=== PATIENT | female | born 1970 | race Caucasian/White ===

== ENCOUNTER 2018-11-05 13:21 | Outpatient (CLI) | payer BC ==
--- NOTE | 2018-11-13 09:23 | MMO ---
BILATERAL DIGITAL SCREENING MAMMOGRAMS: Date: 11/05/18 HISTORY: 48-year-old female presents for digital screening mammogram. COMPARISON: 06/16/15. FINDINGS: This patient's mammogram was interpreted with the assistance of computer-aided detection. Scattered areas of fibroglandular density are noted bilaterally. There does appear to be some overall increased density in both breasts compared to the prior study. There are stable bilateral parenchyma l density asymmetries. No direct or indirect evidence of malignancy. IMPRESSION: BIRADS 2: Benign Finding(s) Continue routine screening. POS: ERIN
== END 2018-11-05 13:22 | disposition home or self-care (01) ==
LOC: SCSMAMMO 13:21
PROVIDERS: ATTEND Family Medicine
DX: Z12.31 Encounter for screening mammogram for malignant neoplasm of breast (principal)
CPT/HCPCS: 77067

== ENCOUNTER 2021-01-23 13:49 | Outpatient (CLI) | payer BC | END 2021-01-23 13:50 | disposition home or self-care (01) | LOC: DTY/OP 13:49 | PROVIDERS: ATTEND Surgery | DX: I10 Essential (primary) hypertension (principal) | CPT/HCPCS: 97802 ==

== ENCOUNTER 2021-02-22 09:48 | Outpatient (CLI) | payer BC ==
[2021-02-22 14:35] LABS: Anion Gap 13 mmol/L (10-20); BUN (Urea Nitrogen) 18 mg/dL (7.0-18.7); Calc. Creatinine Clearance 0 mL/min (70-130); Calcium 9.6 mg/dL (7.8-10.44); Carbon Dioxide 26 mmol/L (22-29); Chloride 105 mmol/L (98-107); Glucose 73 mg/dL (70-105); Potassium 4.7 mmol/L (3.5-5.1); Sodium 139 mmol/L (136-145)
[2021-02-22 21:21] LABS: SARS-CoV-2 PCR by NAA Not Detected (NotDetected)
== END 2021-02-22 09:49 | disposition home or self-care (01) ==
LOC: LABBT 09:48
PROVIDERS: ATTEND Surgery
DX: Z01.818 Encounter for other preprocedural examination (principal); Z20.822 Contact with and (suspected) exposure to COVID-19; E66.9 Obesity, unspecified
CPT/HCPCS: 80048; 87635; 93005; 93010; U0003; U0005

== ENCOUNTER 2021-02-22 10:00 | Inpatient (IN) | payer BC ==
[2021-02-23 14:33] VITALS: BMI 36.2
[2021-02-27] MEDS ORDERED: Lidocaine 2% Jelly 5 ML TUBE ONE (06:09)
[2021-02-27] MEDS ORDERED: Midazolam HCl 2 mg/2 ml Vial ONE (06:09)
[2021-02-27] MEDS ORDERED: Fentanyl 250 MCG/5 ML VIAL ONE (06:09)
[2021-02-27] MEDS ORDERED: cefOXitin Sodium/Dextrose 2 GM/50 ML BAG ONE (06:16)
[2021-02-27] MEDS ORDERED: Lidocaine 1% w/Epinephrine 1:100K 20 ML VIAL ONE (06:53)
[2021-02-27] MEDS ORDERED: Bupivacaine 0.25% HCL 30 ML VIAL ONE (06:53)
[2021-02-27] MEDS ORDERED: Scopolamine 1.5 mg/72 hour Patch ONE (06:55)
[2021-02-27] MEDS ORDERED: Enoxaparin Sodium 40 MG/0.4 ML SYRINGE ONE (06:57)
[2021-02-27] MEDS ORDERED: Lidocaine 1% PF 5 ML VIAL ONE (07:24)
[2021-02-27] MEDS ORDERED: PROPOFOL 200 MG/20 ML VIAL ONE (07:24)
[2021-02-27] MEDS ORDERED: Glycopyrrolate 0.2 MG/ML 5 ML SYRINGE ONE (07:24)
[2021-02-27] MEDS ORDERED: Rocuronium Bromide 10 MG/ML (10ML VIAL) ONE (07:24)
[2021-02-27] MEDS ORDERED: Dexamethasone 20 MG/5 ML VIAL ONE (07:24)
[2021-02-27] MEDS ORDERED: Ondansetron PF 4 MG/2 ML Vial ONE (07:24)
[2021-02-27] MEDS ORDERED: Dextrose 50% Abboject 50 ML SYRINGE SLOW IVP PRN (07:25)
[2021-02-27] MEDS ORDERED: Ondansetron PF 4 MG/2 ML Vial IVP PRN (07:25)
[2021-02-27] MEDS ORDERED: diphenhydrAMINE 50 MG/ML VIAL IVP PRN (07:25)
[2021-02-27] MEDS ORDERED: hydrALAZINE 20 MG/ML VIAL SLOW IVP PRN (07:25)
[2021-02-27] MEDS ORDERED: Promethazine HCl 25 MG/ML VIAL IM PRN (07:25)
[2021-02-27] MEDS ORDERED: Dextrose 5% in Water 1,000 ML IV PRN (07:25)
[2021-02-27] MEDS ORDERED: Morphine 4 MG/ML VIAL SLOW IVP PRN (07:33)
[2021-02-27] MEDS ORDERED: Fentanyl 100 MCG/2 ML VIAL ONE (11:37)
[2021-02-27] MEDS ORDERED: HYDROmorphone 0.5 MG/0.5 ML SYRINGE ONE (12:08)
[2021-02-27] MEDS: D5 1/2 NS w/20 mEq KCL 1,000 ML IV SCH ×2 (14:39→15:30)
[2021-02-27] MEDS: Hydrocodone-Acetamin 15 ML UDCUP PO PRN (14:45)
[2021-02-27] MEDS: Ketorolac Tromethamine 30 MG/ML VIAL IVP SCH ×3 (14:50→23:59)
[2021-02-27] MEDS: Amitriptyline HCl 25 MG TAB PO SCH (15:29)
[2021-02-27] MEDS: Enoxaparin Sodium 40 MG/0.4 ML SYRINGE SC SCH (15:30)
[2021-02-27] MEDS: Pantoprazole 40 MG VIAL IVP SCH (15:34)
[2021-02-28] MEDS: D5 1/2 NS w/20 mEq KCL 1,000 ML IV SCH ×3 (02:00→09:42)
[2021-02-28 03:54] VITALS: TEMP 98.2
[2021-02-28 05:47] LABS: #Basophils 0.1 thou/uL (0.0-0.2); #Eosinphils 0.1 thou/uL (0.0-0.7); #Lymphocytes 2.1 thou/uL (1.20-3.40); #Monocytes 0.8 thou/uL (0.11-0.59); #Neutrophils 6.4 thou/uL (1.40-6.50); %Basophils 0.6 % (0.0-1.0); %Eosinophils 0.7 % (0.0-10.0); %Lymphocytes 21.8 % (21.0-51.0); %Monocytes 8.7 % (0.0-10.0); %Neutrophils 68.1 % (42.0-75.0); Hemoglobin 12.9 g/dL (12.0-16.0); Mean Corpuscular HGB CONC 33.9 g/dL (32.0-36.0); Mean Corpuscular Hemoglobin 31.2 pg (27.0-31.0); Mean Corpuscular Volume 92.2 fL (78.0-98.0); Mean Platelet Volume 8.3 fL (7.4-10.4); Platelet Count 223 thou/uL (130-400); RBC Distribution Width 11.3 % (11.5-14.5); Red Blood Cell (RBC) Count 4.12 mill/uL (4.20-5.40); White Blood Cell (WBC) Count 9.4 thou/uL (4.8-10.8)
[2021-02-28] MEDS: Ketorolac Tromethamine 30 MG/ML VIAL IVP SCH ×3 (06:00→06:50)
[2021-02-28 06:13] LABS: Anion Gap 10 mmol/L (10-20); BUN (Urea Nitrogen) 6 mg/dL (7.0-18.7); Calc. Creatinine Clearance 144 mL/min (70-130); Calcium 8.3 mg/dL (7.8-10.44); Carbon Dioxide 22 mmol/L (22-29); Chloride 109 mmol/L (98-107); Glucose 106 mg/dL (70-105); Potassium 3.5 mmol/L (3.5-5.1); Sodium 137 mmol/L (136-145)
[2021-02-28] MEDS: Hydrocodone-Acetamin 15 ML UDCUP PO PRN (09:39)
[2021-02-28] MEDS: Enoxaparin Sodium 40 MG/0.4 ML SYRINGE SC SCH (09:40)
[2021-02-28] MEDS: Pantoprazole 40 MG VIAL IVP SCH (09:40)
[2021-02-28] MEDS: Amitriptyline HCl 25 MG TAB PO SCH (09:40)
[2021-02-28 11:36] VITALS: BP 125/81
== END 2021-02-28 12:40 | disposition home or self-care (01) | DRG 328 ==
LOC: SJJU 02-27 05:48 → SURG A 02-27 12:50
PROVIDERS: ADMIT Surgery; ATTEND Surgery
PROC: 0DP64CZ Removal of Extraluminal Device from Stomach, Percutaneous Endoscopic Approach (ICD-10-PCS; principal; 2021-02-27)
PROC: 0DB64Z3 Excision of Stomach, Percutaneous Endoscopic Approach, Vertical (ICD-10-PCS; 2021-02-27)
PROC: 8E0WXCZ Robotic Assisted Procedure of Trunk Region (ICD-10-PCS; 2021-02-27)
DX: K95.09 Other complications of gastric band procedure (principal); Z20.822 Contact with and (suspected) exposure to COVID-19; E66.01 Morbid (severe) obesity due to excess calories; K21.9 Gastro-esophageal reflux disease without esophagitis; E78.00 Pure hypercholesterolemia, unspecified; Y83.8 Other surgical procedures as the cause of abnormal reaction of the patient, or of later complication, without mention of misadventure at the time of the procedure; I10 Essential (primary) hypertension; Z79.899 Other long term (current) drug therapy; Z98.51 Tubal ligation status; Z90.710 Acquired absence of both cervix and uterus; Z90.49 Acquired absence of other specified parts of digestive tract; Z68.36 Body mass index [BMI] 36.0-36.9, adult
CPT/HCPCS: 36415; 80048; 85025; 88307; C9113; J0694; J1100; J1170; J1650; J1885; J2250; J2405; J2704; J3010; J3480; S0020

== ENCOUNTER 2022-05-23 13:44 | Outpatient (CLI) | payer BC | END 2022-05-23 13:45 | disposition home or self-care (01) | LOC: BICULT 13:44 | PROVIDERS: ATTEND Student in an Organized Health Care Education/Training Program | DX: N64.89 Other specified disorders of breast (principal) | CPT/HCPCS: G0279 ==

== ENCOUNTER 2023-05-29 13:25 | Outpatient (CLI) | payer BC | END 2023-05-29 13:26 | disposition home or self-care (01) | LOC: SCSMRI 13:25 | PROVIDERS: ATTEND Psychiatry & Neurology Neurology | DX: R51.9 Headache, unspecified (principal) | CPT/HCPCS: 70553 ==